=== PATIENT | male | born 1960 | race Hispanic/Latino ===

== ENCOUNTER 2019-01-20 11:14 | Emergency (ER) | payer BC, MEDICAID, OTHER ==
[~2019-01-20 11:14] MED LIST: LISI1TAB13 PO
[2019-01-20] MEDS ORDERED: LIDOCAINE 5% TOPICAL PATCH TP ONE (11:32)
[2019-01-20] MEDS ORDERED: KETOROLAC TROMETHAMINE 60 MG/2 ML VIAL ONE (11:32)
[2019-01-20] MEDS ORDERED: DIAZEPAM 5 MG TABLET ONE (11:33)
== END 2019-01-20 12:37 | disposition home or self-care (01) ==
LOC: EDH 11:14
DX: M54.18 Radiculopathy, sacral and sacrococcygeal region (principal); M54.5 Low back pain; I10 Essential (primary) hypertension; Z88.8 Allergy status to other drugs, medicaments and biological substances
CPT/HCPCS: 96372; 99283; J1885

== ENCOUNTER 2019-02-20 16:50 | Emergency (ER) | payer OTHER ==
[2019-02-20] MEDS ORDERED: ACETAMINOPHEN EXTRA STRENGTH 500 MG TABLET ONE (17:15)
== END 2019-02-20 17:39 | disposition home or self-care (01) ==
LOC: EDH 16:50
DX: M25.572 Pain in left ankle and joints of left foot (principal); I10 Essential (primary) hypertension; M54.16 Radiculopathy, lumbar region; Z88.8 Allergy status to other drugs, medicaments and biological substances